=== PATIENT | female | born 1985 | race Caucasian/White ===

== ENCOUNTER 2018-04-06 23:47 | Inpatient (IN) | payer BC ==
[~2018-04-06] VITALS: Ht 185.4 cm; Wt 90.5 kg
[2018-04-06 00:30] VITALS: BP 122/79; PULSE 82; TEMP 97.7
[2018-04-07] VITALS (60 sets, daily range): BP systolic 92–130; BP diastolic 50–83; PULSE 57–142; TEMP 97.4–98.8
[2018-04-07] MEDS ORDERED: PRENATAL MVI (00:24)
[2018-04-07] MEDS ORDERED: PRILOSEC 20MG20 MG PO (00:24)
[2018-04-07] MEDS ORDERED: ZYRTEC 10MG10 MG PO (00:24)
[2018-04-07 01:48] LABS: BASO % 0.4 % (0.0-2.0); EOS # 0.1 (0.0-0.7); EOS % 1.2 % (0-4.0); GRAN # 5.8 (1.4-6.5); GRAN % 68.2 % (42.2-75.2); HEMOGLOBIN 11.2 g/dl (12.5-16.0); LYMPH # 1.8 (1.2-3.4); LYMPH % 21.5 % (20.0-51.0); MEAN CELL VOLUME 98 fl (80.0-100.0); MEAN CORPUSCULAR HEMOGLOBIN 34 pg (27.0-31.0); MEAN CORPUSCULAR HGB CONC 35 g/dl (33.0-37.0); MEAN PLATELET VOLUME 11.2 fl (7.4-10.4); MONO # 0.6 (0.1-0.6); MONO % 7.6 % (1.7-9.3); PLATELET COUNT 241 K/mm3 (130-400); RED BLOOD COUNT 3.27 M/mm3 (4.10-5.30); REDCELL DISTRIBUTION WIDTH-CV 13.1 % (11.5-14.5)
[2018-04-07 01:54] LABS: HEMATOCRIT 32.1 % (37.0-47.0)
[2018-04-08 03:15] VITALS: BP 103/64; PULSE 76; TEMP 97.8
[2018-04-08 07:38] VITALS: BP 101/60; PULSE 81; TEMP 98
[2018-04-08] MEDS ORDERED: PERCOCET 325 MG1 TA2 PO (10:02)
[2018-04-08] MEDS ORDERED: IBU600 MG PO (10:02)
[2018-04-08 16:24] VITALS: BP 106/66; PULSE 83; TEMP 98.7
[2018-04-08 20:15] VITALS: BP 116/72; PULSE 72
[2018-04-09 08:42] VITALS: BP 106/62; PULSE 63; TEMP 97.8
[2018-04-09 16:24] VITALS: BP 107/59; PULSE 74; TEMP 98.3
[2018-04-09 21:00] VITALS: BP 119/75; PULSE 77; TEMP 97.9
[2018-04-10 09:30] VITALS: BP 111/71; PULSE 67; TEMP 97.4
== END 2018-04-10 13:31 | disposition home or self-care (01) | DRG 766 ==
LOC: LDRO 23:47 → LDR 04-07 00:40 → OB 04-07 14:32
PROVIDERS: Obstetrics & Gynecology
PROC: 10D00Z1 Extraction of Products of Conception, Low, Open Approach (ICD-10-PCS; principal; 2018-04-07)
DX: O32.3XX0 Maternal care for face, brow and chin presentation, not applicable or unspecified (principal); Z3A.37 37 weeks gestation of pregnancy; Z37.0 Single live birth
CPT/HCPCS: J0690; J1885; J2175; J2370; J2400; J2405; J2590; J2795; J3010; J7120

== ENCOUNTER → 2018-06-24 | Outpatient (CLI) | payer BC ==
[~2018-06-24] MED LIST: IBU600 MG PO; PERCOCET 325 MG1 TA2 PO; PRENATAL MVI; PRILOSEC 20MG20 MG PO; ZYRTEC 10MG10 MG PO
== END ==
LOC: MC.RAD 13:45
DX: N60.01 Solitary cyst of right breast (principal)

== ENCOUNTER 2020-10-04 15:17 | Emergency (ER) | payer BC ==
[~2020-10-04] VITALS: Ht 185.4 cm; Wt 85.5 kg
[2020-10-04 15:21] VITALS: BP 122/82; TEMP 98.8
[2020-10-04 15:45] VITALS: PULSE 96
== END 2020-10-04 15:45 | disposition home or self-care (01) ==
LOC: COL.ER 15:17
DX: S61.211A Laceration without foreign body of left index finger without damage to nail, initial encounter (principal); W26.0XXA Contact with knife, initial encounter

== ENCOUNTER 2020-11-28 06:45 | Inpatient (IN) | payer BC ==
[2020-11-28] VITALS (18 sets, daily range): BP systolic 94–121; BP diastolic 49–106; PULSE 63–76; TEMP 97.2–98.4
[~2020-11-28] VITALS: Ht 185.5 cm; Wt 93.2 kg
[2020-11-28 07:10] LABS: BASO % 0.4 % (0.0-2.0); EOS # 0.1 (0.0-0.7); EOS % 1.2 % (0-4.0); GRAN # 4.3 (1.4-6.5); GRAN % 59.2 % (42.2-75.2); HEMOGLOBIN 11.1 g/dl (12.5-16.0); LYMPH # 2.2 (1.2-3.4); LYMPH % 29.6 % (20.0-51.0); MEAN CELL VOLUME 104 fl (80.0-100.0); MEAN CORPUSCULAR HEMOGLOBIN 35 pg (27.0-31.0); MEAN CORPUSCULAR HGB CONC 33 g/dl (33.0-37.0); MEAN PLATELET VOLUME 11.3 fl (7.4-10.4); MONO # 0.6 (0.1-0.6); MONO % 8.6 % (1.7-9.3); PLATELET COUNT 188 K/mm3 (130-400); REDCELL DISTRIBUTION WIDTH-CV 13.6 % (11.5-14.5)
[2020-11-28] MEDS ORDERED: PEPCID COMPLETE1 CTB PO (07:13)
[2020-11-28] MEDS ORDERED: CALCIUM CARBON650 M2 (07:13)
[2020-11-28] MEDS ORDERED: SLOW FE142 MG PO (07:14)
[2020-11-28 07:15] LABS: HEMATOCRIT 33.2 % (37.0-47.0)
--- NOTE | 2020-11-28 10:09 | NUR ---
0615 - Pt arrives ambulatory to unit with spouse. Pt changes into gown, EFM explained and placed, VS taken. Pt states her water broke at 0450 with "a gush" then contractions started. Pt did not know how far apart they are, but is visibly uncomfortable. Pt denies bleeding and reports good movement. AmnioTest inconclusive, SVE 6/100/-1. Large gush of fluid and bloody show noted when pushing up on baby's head. 2947 - Dr. Mullen notified of pt arrival and evaluation. Per physician, orders entered for , will plan on procedure at approximatley 0730.
[2020-11-29 09:00] VITALS: BP 102/58; PULSE 66; TEMP 97.6
[2020-11-29] MEDS ORDERED: IBU600 MG PO (09:18)
[2020-11-29] MEDS ORDERED: PERCOCET 325 MG1 TA2 PO (09:18)
--- NOTE | 2020-11-29 09:47 | NUR ---
Initial visit; Parents thanked Content Writer for offering congratulations and God's blessings for the of their daughter. Content Writer thanked family for choosing [facility].
[2020-11-29 16:55] VITALS: BP 106/61; PULSE 82
[2020-11-29 19:20] VITALS: BP 107/55; PULSE 77; TEMP 98.6
[2020-11-30 08:10] VITALS: BP 113/56; PULSE 75; TEMP 97.6
[2020-11-30 16:14] VITALS: BP 106/63; PULSE 90; TEMP 98.6
[2020-11-30 21:50] VITALS: BP 99/62; PULSE 78; TEMP 97.5
[2020-12-01 07:00] VITALS: BP 114/69; PULSE 83; TEMP 97.6
== END 2020-12-01 12:50 | disposition home or self-care (01) | DRG 788 ==
LOC: LDRO 06:45 → LDR 06:50 → OB 09:18
PROVIDERS: ADMIT Obstetrics & Gynecology
PROC: 10D00Z1 Extraction of Products of Conception, Low, Open Approach (ICD-10-PCS; principal; 2020-11-29)
DX: O34.211 Maternal care for low transverse scar from previous cesarean delivery (principal); O99.02 Anemia complicating childbirth; Z3A.38 38 weeks gestation of pregnancy; Z37.0 Single live birth
CPT/HCPCS: J0330; J0690; J1100; J1885; J2210; J2370; J2405; J2590; J2704; J7120